=== PATIENT | male | born 1955 | race Caucasian/White ===

== ENCOUNTER 2022-10-25 10:56 | Inpatient (IN) | payer OTHER, MEDICAID ==
[2022-10-25] VITALS (10 sets, daily range): BP systolic 109–153; PULSE 64–119; RESP 20–22; TEMP 96.7–98.7; O2SAT 96–100
[~2022-10-25] VITALS: Ht 182.9 cm; Wt 72.6 kg
[2022-10-25] MEDS ORDERED: NACL 0.9% 1,000 ML IV ONE ×2 (11:45→12:45)
[2022-10-25 12:05] LABS: HEMATOCRIT 38.8 % (36-54); HEMOGLOBIN 13.5 g/dL (14.0-18.0); MEAN CORPUSCULAR HEMOGLOBIN 31 pg (27-31); MEAN CORPUSCULAR HGB CONC 35 % (32-36); MEAN CORPUSCULAR VOLUME 88 fL (79.0-98.0); PLATELET COUNT (AUTO) 386 K/uL (130-430); RED BLOOD CELL COUNT(AUTO) 4.42 MIL/uL (4.2-6.2); RED CELL DISTRIBUTION WIDTH 12.5 % (9.0-15.0)
[2022-10-25 12:18] LABS: ANION GAP 10 (5-15); CALCIUM 8.7 mg/dL (8.4-11.0); CARBON DIOXIDE 29 mmol/L (23-29); CHLORIDE 88 mmol/L (98-107); CREATININE 0.85 mg/dL (0.55-1.30); GFR AFRICAN AMERICAN 116 mL/min (>90); GLUCOSE 315 mg/dL (74-106); POTASSIUM 3.2 mmol/L (3.5-5.1); SODIUM SERUM 127 mmol/L (136-145); UREA NITROGEN, BLOOD 11 mg/dL (8-21)
[2022-10-25 12:22] LABS: INR 1.2 (0.80-1.20); PROTHROMBIN TIME 12.4 SECS (9.5-12.5)
[2022-10-25 12:23] LABS: GFR NON AFRICAN-AMERICAN 96 mL/min (>90)
[2022-10-25 12:25] LABS: ALANINE AMINOTRANSFERASE 14 U/L (12-78); ALBUMIN 2.2 g/dL (3.4-4.8); ASPARTATE AMINOTRANSFERASE 35 U/L (10-37); TOTAL BILIRUBIN 0.8 mg/dL (0.0-1.0); TOTAL PROTEIN, SERUM 8.3 g/dL (6.4-8.3)
[2022-10-25 12:27] LABS: ALCOHOL, BLOOD < 3 mg/dL (<10)
[2022-10-25 12:32] LABS: BILIRUBIN,URINE NEGATIVE (NEGATIVE); BLOOD, URINE 1+ (NEGATIVE); CLARITY/URINE Clear (CLEAR); COLOR,URINE YELLOW (YELLOW); GLUCOSE,URINE 3+ (NEGATIVE); KETONES,URINE NEGATIVE (NEGATIVE); NITRITE, URINE NEGATIVE (NEGATIVE); PROTEIN URINE 2+ (NEGATIVE)
[2022-10-25 12:41] LABS: LEUKOCYTE ESTERASE ,URINE NEGATIVE (NEGATIVE)
[2022-10-25 12:47] LABS: BACTERIA,URINE None Seen /HPF (None Seen); WBC,URINE 0-3 /HPF (0-3)
[2022-10-25 12:48] LABS: HYALINE CASTS, URINE 0-5 /LPF (None Seen); MUCUS,URINE 1+ /LPF (None Seen)
[2022-10-25 12:59] LABS: ATYPICAL LYMPHOCYTES % 2 % (0-0); BAND % (MANUAL) 12 % (0-6); BASOPHILS % (MANUAL) 0 % (0-2); EOSINOPHILS % (MANUAL) 0 % (0-7); LYMPHOCYTES % (MANUAL) 4 % (20-46); MONOCYTES % (MANUAL) 7 % (0-11)
[2022-10-25 13:00] LABS: PLATELET ESTIMATE ADEQUATE (ADEQUATE)
[2022-10-25] MEDS ORDERED: VANCOMYCIN HCL 1,000 MG in NS 250 ML IV ONE (13:00)
[2022-10-25] MEDS ORDERED: cefTRIAXone 1 GM in D5W 50 ML IV ONE (13:00)
[2022-10-25 13:18] LABS: ABG O2 SAT% ESTIMATE 99.7 % (94.0-100.0); BLOOD GAS BASE EXCESS -0.1 mmol/L (-3.0-3.0); BLOOD GAS PO2 323.4 mmHg (75.0-100.0)
[2022-10-25] MEDS ORDERED: FURO40TA5 PO (13:25)
[2022-10-25] MEDS ORDERED: METF-379 PO (13:25)
[2022-10-25] MEDS ORDERED: EMPA10TA PO (13:25)
[2022-10-25] MEDS ORDERED: SPIR25TA6 PO (13:25)
[2022-10-25] MEDS ORDERED: CARV6.2554 PO (13:25)
[2022-10-25 13:38] LABS: ALLEN'S TEST POSITIVE (P); BLOOD GAS PCO2 59.9 mmHg (32.0-45.0); BLOOD GAS PH 7.287 (7.350-7.450)
[2022-10-25] MEDS ORDERED: cefTRIAXone 1 GM VIAL ONE (14:13)
[2022-10-25] MEDS ORDERED: VANCOMYCIN HCL 1000 MG/VIAL IV ONE (14:23)
[2022-10-25] MEDS ORDERED: NOREPINEPHRINE BITARTRATE 4 MG in NS 246 ML IV PRN (14:45)
[2022-10-25] MEDS: D5/0.45 NS 1,000 ML IV SCH (14:49)
[2022-10-25] MEDS ORDERED: ROCURONIUM BROMIDE 10 MG/ML (ZEMURON) ONE (15:00)
[2022-10-25] MEDS ORDERED: ETOMIDATE 20 MG/ 10 ML VIAL (AMIDATE) ONE (15:00)
[2022-10-25] MEDS ORDERED: NOREPINEPHRINE 4 MG/4 ML VIAL IV ONE (19:26)
[2022-10-25] MEDS: PIPERACILLIN/TAZO 4.5GM/DEX-IS 100 ML IV SCH (22:36)
[2022-10-25] MEDS: PROPOFOL DRIP 100 ML IV PRN (22:37)
[2022-10-26] VITALS (34 sets, daily range): BP systolic 13–130; PULSE 91–117; RESP 16–24; TEMP 97–98.6; O2SAT 94–100
[2022-10-26] MEDS: D5/0.45 NS 1,000 ML IV SCH ×3 (00:08→20:37)
[2022-10-26] MEDS: PROPOFOL DRIP 100 ML IV PRN ×5 (01:50→22:53)
[2022-10-26] MEDS: PIPERACILLIN/TAZO 4.5GM/DEX-IS 100 ML IV SCH ×3 (05:13→22:42)
[2022-10-26 05:40] LABS: ERYTHROCYTE SEDIMENTATION RATE 84 MM/HR (0-15)
[2022-10-26 05:42] LABS: BASOPHILS # (AUTO) 0.1 K/uL (0.0-0.2); BASOPHILS % (AUTO) 0.2 % (0.0-2.0); HEMATOCRIT 36.7 % (36-54); HEMOGLOBIN 12.5 g/dL (14.0-18.0); LYMPHOCYTES # (AUTO) 2.2 K/uL (1.0-5.5); LYMPHOCYTES % (AUTO) 5.9 % (20.5-51.5); MEAN CORPUSCULAR HEMOGLOBIN 30 pg (27-31); MEAN CORPUSCULAR HGB CONC 34 % (32-36); MEAN CORPUSCULAR VOLUME 88 fL (79.0-98.0); MONOCYTES # (AUTO) 1.9 K/uL (0.0-1.0); MONOCYTES % (AUTO) 4.9 % (1.7-9.3); NEUTROPHILS # (AUTO) 33.9 K/uL (1.8-7.7); PLATELET COUNT (AUTO) 437 K/uL (130-430); RED BLOOD CELL COUNT(AUTO) 4.19 MIL/uL (4.2-6.2); RED CELL DISTRIBUTION WIDTH 12.8 % (9.0-15.0)
[2022-10-26 05:59] LABS: WHITE BLOOD COUNT (AUTO) 38.1 K/uL (4.8-10.8)
[2022-10-26 06:26] LABS: CALCIUM 8.6 mg/dL (8.4-11.0); CREATININE 0.6 mg/dL (0.55-1.30)
[2022-10-26 06:41] LABS: POTASSIUM 2.5 mmol/L (3.5-5.1)
[2022-10-26] MEDS ORDERED: KCL 40 mEq in 100 mL (PREMIX) 100 ML IV ONE ×2 (13:10→13:15)
[2022-10-26] MEDS: PANTOPRAZOLE SODIUM 40 MG/VIAL (PROTONIX) IVP SCH (20:34)
[2022-10-26] MEDS: VANCOMYCIN HCL 1,000 MG in NS 250 ML IV SCH (20:36)
[2022-10-26] MEDS ORDERED: MAGNESIUM SULFATE 50 ML IV ONE (23:00)
[2022-10-27] VITALS (36 sets, daily range): BP systolic 114–164; PULSE 79–116; RESP 18–34; TEMP 97.9–98.8; O2SAT 95–99
[2022-10-27] MEDS: VANCOMYCIN HCL 1,000 MG in NS 250 ML IV SCH ×3 (04:02→20:11)
[2022-10-27] MEDS: PROPOFOL DRIP 100 ML IV PRN ×3 (06:04→20:14)
[2022-10-27] MEDS: D5/0.45 NS 1,000 ML IV SCH ×2 (06:05→14:13)
[2022-10-27] MEDS: PIPERACILLIN/TAZO 4.5GM/DEX-IS 100 ML IV SCH (06:05)
[2022-10-27 06:23] LABS: BASOPHILS % (AUTO) 0.1 % (0.0-2.0); EOSINOPHILS % (AUTO) 0.1 % (0.0-4.0); LYMPHOCYTES # (AUTO) 2.1 K/uL (1.0-5.5); LYMPHOCYTES % (AUTO) 7.3 % (20.5-51.5); MEAN CORPUSCULAR HEMOGLOBIN 30 pg (27-31); MEAN CORPUSCULAR HGB CONC 34 % (32-36); MEAN CORPUSCULAR VOLUME 89 fL (79.0-98.0); MONOCYTES # (AUTO) 1.7 K/uL (0.0-1.0); MONOCYTES % (AUTO) 5.7 % (1.7-9.3); NEUTROPHILS # (AUTO) 25.5 K/uL (1.8-7.7); NEUTROPHILS % (AUTO) 86.8 % (40.0-70.0); PLATELET COUNT (AUTO) 362 K/uL (130-430); RED CELL DISTRIBUTION WIDTH 13.1 % (9.0-15.0); WHITE BLOOD COUNT (AUTO) 29.3 K/uL (4.8-10.8)
[2022-10-27 06:53] LABS: ALBUMIN 1.5 g/dL (3.4-4.8); CALCIUM 7.9 mg/dL (8.4-11.0); CREATININE 0.78 mg/dL (0.55-1.30); POTASSIUM 3.2 mmol/L (3.5-5.1); TOTAL BILIRUBIN 0.6 mg/dL (0.0-1.0); TOTAL PROTEIN, SERUM 6.7 g/dL (6.4-8.3)
[2022-10-27] MEDS: PANTOPRAZOLE SODIUM 40 MG/VIAL (PROTONIX) IVP SCH ×2 (08:16→21:33)
[2022-10-27] MEDS ORDERED: KCL 40 mEq in 100 mL (PREMIX) 100 ML IV ONE (10:15)
[2022-10-27] MEDS: MICAFUNGIN SODIUM 50 MG in NS 50 ML IV SCH (14:12)
[2022-10-27 19:15] LABS: INFLUENZA TYPE A negative (NEGATIVE); INFLUENZA TYPE B NEGATIVE (NEGATIVE)
[2022-10-27 19:20] LABS: COVID19 ANTIGEN SOFIA FIA POSITIVE (NEGATIVE)
[2022-10-27] MEDS: CEFEPIME 2 GM in D5W 100 ML IV SCH (21:33)
[2022-10-28] VITALS (37 sets, daily range): BP systolic 119–172; PULSE 74–92; RESP 24–34; TEMP 98.4–98.8; O2SAT 94–99
[2022-10-28] MEDS: PROPOFOL DRIP 100 ML IV PRN ×3 (00:10→17:39)
[2022-10-28] MEDS: D5/0.45 NS 1,000 ML IV SCH ×3 (01:25→18:39)
[2022-10-28] MEDS ORDERED: hydrALAZINE HCL 20 MG/ML VIAL IVP PRN (01:30)
[2022-10-28] MEDS: VANCOMYCIN HCL 1,000 MG in NS 250 ML IV SCH ×3 (04:03→19:39)
[2022-10-28 05:41] LABS: BASOPHILS % (AUTO) 0.1 % (0.0-2.0); EOSINOPHILS % (AUTO) 0.1 % (0.0-4.0); HEMATOCRIT 35.1 % (36-54); LYMPHOCYTES % (AUTO) 7.4 % (20.5-51.5); MEAN CORPUSCULAR HEMOGLOBIN 30 pg (27-31); MEAN CORPUSCULAR HGB CONC 34 % (32-36); MEAN CORPUSCULAR VOLUME 89 fL (79.0-98.0); MONOCYTES # (AUTO) 1.2 K/uL (0.0-1.0); MONOCYTES % (AUTO) 4.2 % (1.7-9.3); NEUTROPHILS # (AUTO) 24.3 K/uL (1.8-7.7); NEUTROPHILS % (AUTO) 88.2 % (40.0-70.0); PLATELET COUNT (AUTO) 356 K/uL (130-430); RED BLOOD CELL COUNT(AUTO) 3.93 MIL/uL (4.2-6.2); WHITE BLOOD COUNT (AUTO) 27.5 K/uL (4.8-10.8)
[2022-10-28 06:07] LABS: ALBUMIN 1.5 g/dL (3.4-4.8); BILIRUBIN,DIRECT 0.3 mg/dL (0.0-0.3); CALCIUM 8.2 mg/dL (8.4-11.0); CREATININE 0.67 mg/dL (0.55-1.30); POTASSIUM 3.7 mmol/L (3.5-5.1); TOTAL BILIRUBIN 0.5 mg/dL (0.0-1.0); TOTAL PROTEIN, SERUM 7.3 g/dL (6.4-8.3)
[2022-10-28 06:25] LABS: ERYTHROCYTE SEDIMENTATION RATE 62 MM/HR (0-15)
[2022-10-28] MEDS: hydrALAZINE HCL 20 MG/ML VIAL IVP PRN ×2 (06:36→21:29)
[2022-10-28 08:02] LABS: ABG O2 SAT% ESTIMATE 96.3 % (94.0-100.0); BLOOD GAS HCO3 25.3 mmol/L (21.0-27.0); BLOOD GAS PCO2 32.2 mmHg (32.0-45.0); BLOOD GAS PO2 74.6 mmHg (75.0-100.0)
[2022-10-28 08:14] LABS: ALLEN'S TEST POSITIVE (P); BLOOD GAS PH 7.513 (7.350-7.450)
[2022-10-28] MEDS: CEFEPIME 2 GM in D5W 100 ML IV SCH ×2 (08:20→21:28)
[2022-10-28] MEDS: PANTOPRAZOLE SODIUM 40 MG/VIAL (PROTONIX) IVP SCH ×2 (08:20→21:28)
[2022-10-28] MEDS: BALSAM PERU/CASTOR OIL 56.7 GM OINT...G. TP SCH (08:21)
[2022-10-28] MEDS: MICAFUNGIN SODIUM 50 MG in NS 50 ML IV SCH (14:21)
[2022-10-29] VITALS (37 sets, daily range): BP systolic 121–170; PULSE 74–94; RESP 7–44; TEMP 97.8–98.7; O2SAT 94–98
[2022-10-29] MEDS: PROPOFOL DRIP 100 ML IV PRN ×4 (01:01→23:19)
[2022-10-29] MEDS: VANCOMYCIN HCL 1,000 MG in NS 250 ML IV SCH ×3 (04:20→20:45)
[2022-10-29 05:45] LABS: ERYTHROCYTE SEDIMENTATION RATE 73 MM/HR (0-15)
[2022-10-29 05:57] LABS: BASOPHILS # (AUTO) 0.2 K/uL (0.0-0.2); BASOPHILS % (AUTO) 0.8 % (0.0-2.0); EOSINOPHILS # (AUTO) 0.1 K/uL (0.0-0.4); EOSINOPHILS % (AUTO) 0.3 % (0.0-4.0); HEMOGLOBIN 11.9 g/dL (14.0-18.0); LYMPHOCYTES % (AUTO) 8.4 % (20.5-51.5); MEAN CORPUSCULAR HEMOGLOBIN 30 pg (27-31); MEAN CORPUSCULAR HGB CONC 34 % (32-36); MEAN CORPUSCULAR VOLUME 89 fL (79.0-98.0); MONOCYTES # (AUTO) 1.1 K/uL (0.0-1.0); MONOCYTES % (AUTO) 4.5 % (1.7-9.3); NEUTROPHILS # (AUTO) 20.6 K/uL (1.8-7.7); PLATELET COUNT (AUTO) 340 K/uL (130-430); RED BLOOD CELL COUNT(AUTO) 3.92 MIL/uL (4.2-6.2); RED CELL DISTRIBUTION WIDTH 12.8 % (9.0-15.0); WHITE BLOOD COUNT (AUTO) 23.9 K/uL (4.8-10.8)
[2022-10-29 06:08] LABS: ALBUMIN 1.3 g/dL (3.4-4.8); CALCIUM 7.8 mg/dL (8.4-11.0); CREATININE 0.62 mg/dL (0.55-1.30); PHOSPHORUS 2.9 mg/dL (2.7-4.5); POTASSIUM 3.6 mmol/L (3.5-5.1); TOTAL BILIRUBIN 0.5 mg/dL (0.0-1.0); TOTAL PROTEIN, SERUM 6.9 g/dL (6.4-8.3)
[2022-10-29] MEDS: D5/0.45 NS 1,000 ML IV SCH (07:12)
[2022-10-29 07:50] LABS: ABG O2 SAT% ESTIMATE 96.5 % (94.0-100.0); BLOOD GAS BASE EXCESS 5.1 mmol/L (-3.0-3.0); BLOOD GAS HCO3 28.2 mmol/L (21.0-27.0); BLOOD GAS PCO2 36.7 mmHg (32.0-45.0); BLOOD GAS PO2 77.9 mmHg (75.0-100.0)
[2022-10-29 07:53] LABS: BLOOD GAS PH 7.504 (7.350-7.450)
[2022-10-29 07:54] LABS: ALLEN'S TEST POSITIVE (P)
[2022-10-29] MEDS: CEFEPIME 2 GM in D5W 100 ML IV SCH ×2 (08:37→20:48)
[2022-10-29] MEDS: PANTOPRAZOLE SODIUM 40 MG/VIAL (PROTONIX) IVP SCH ×2 (08:37→21:02)
[2022-10-29] MEDS: BALSAM PERU/CASTOR OIL 56.7 GM OINT...G. TP SCH (08:50)
[2022-10-29] MEDS ORDERED: CALCIUM GLUCONATE 2 GM in NS 100 ML IV ONE (11:00)
[2022-10-29] MEDS: MICAFUNGIN SODIUM 50 MG in NS 50 ML IV SCH (14:32)
[2022-10-29] MEDS: hydrALAZINE HCL 20 MG/ML VIAL IVP PRN (23:09)
[2022-10-30] VITALS (36 sets, daily range): BP systolic 110–150; PULSE 74–95; RESP 24–32; TEMP 98.2–101; O2SAT 95–98
[2022-10-30] MEDS: PROPOFOL DRIP 100 ML IV PRN ×3 (04:58→14:56)
[2022-10-30 05:45] LABS: BASOPHILS # (AUTO) 0.1 K/uL (0.0-0.2); BASOPHILS % (AUTO) 0.4 % (0.0-2.0); EOSINOPHILS # (AUTO) 0.2 K/uL (0.0-0.4); EOSINOPHILS % (AUTO) 1.1 % (0.0-4.0); HEMATOCRIT 33.9 % (36-54); HEMOGLOBIN 11.3 g/dL (14.0-18.0); LYMPHOCYTES # (AUTO) 1.7 K/uL (1.0-5.5); LYMPHOCYTES % (AUTO) 8.4 % (20.5-51.5); MEAN CORPUSCULAR HEMOGLOBIN 30 pg (27-31); MEAN CORPUSCULAR HGB CONC 34 % (32-36); MEAN CORPUSCULAR VOLUME 89 fL (79.0-98.0); MONOCYTES % (AUTO) 4.8 % (1.7-9.3); NEUTROPHILS # (AUTO) 17.5 K/uL (1.8-7.7); NEUTROPHILS % (AUTO) 85.3 % (40.0-70.0); PLATELET COUNT (AUTO) 341 K/uL (130-430); WHITE BLOOD COUNT (AUTO) 20.6 K/uL (4.8-10.8)
[2022-10-30 05:53] LABS: ERYTHROCYTE SEDIMENTATION RATE 68 MM/HR (0-15)
[2022-10-30] MEDS: VANCOMYCIN HCL 1,000 MG in NS 250 ML IV SCH ×3 (06:05→19:36)
[2022-10-30 07:12] LABS: CALCIUM 7.6 mg/dL (8.4-11.0); CREATININE 0.54 mg/dL (0.55-1.30); POTASSIUM 3.3 mmol/L (3.5-5.1)
[2022-10-30 08:28] LABS: ALBUMIN 1.4 g/dL (3.4-4.8); BILIRUBIN,DIRECT 0.2 mg/dL (0.0-0.3); TOTAL BILIRUBIN 0.4 mg/dL (0.0-1.0); TOTAL PROTEIN, SERUM 6.7 g/dL (6.4-8.3)
[2022-10-30] MEDS: BALSAM PERU/CASTOR OIL 56.7 GM OINT...G. TP SCH (09:05)
[2022-10-30] MEDS: PANTOPRAZOLE SODIUM 40 MG/VIAL (PROTONIX) IVP SCH ×2 (09:05→22:57)
[2022-10-30] MEDS: CEFEPIME 2 GM in D5W 100 ML IV SCH ×2 (09:05→22:56)
[2022-10-30 09:22] LABS: INFLUENZA A PCR Negative (Negative); INFLUENZA B PCR Negative (Negative); NOVEL CORONAVIRUS(COVID19) NAA Negative (Negative); RSV PCR Negative (Negative)
[2022-10-30] MEDS ORDERED: POTASSIUM CHLORIDE 20 MEQ/PKT PACKET NG ONE (11:45)
[2022-10-30] MEDS ORDERED: POTASSIUM CHLORIDE 20 MEQ TAB.PRT.SR ONE (12:36)
[2022-10-30] MEDS: MICAFUNGIN SODIUM 50 MG in NS 50 ML IV SCH (14:02)
[2022-10-30] MEDS ORDERED: ACETAMINOPHEN 650 MG/20.3 ML UDC ONE (22:43)
[2022-10-31] VITALS (26 sets, daily range): BP systolic 125–173; PULSE 80–103; RESP 20–34; TEMP 96–99.8; O2SAT 94–99
[2022-10-31] MEDS: PROPOFOL DRIP 100 ML IV PRN ×4 (00:59→22:12)
[2022-10-31] MEDS: hydrALAZINE HCL 20 MG/ML VIAL IVP PRN ×2 (01:42→13:42)
[2022-10-31] MEDS: VANCOMYCIN HCL 1,000 MG in NS 250 ML IV SCH ×2 (04:57→12:00)
[2022-10-31 06:07] LABS: ERYTHROCYTE SEDIMENTATION RATE 39 MM/HR (0-15)
[2022-10-31 06:09] LABS: BASOPHILS # (AUTO) 0.1 K/uL (0.0-0.2); BASOPHILS % (AUTO) 0.6 % (0.0-2.0); EOSINOPHILS # (AUTO) 0.3 K/uL (0.0-0.4); EOSINOPHILS % (AUTO) 1.4 % (0.0-4.0); HEMATOCRIT 31.7 % (36-54); HEMOGLOBIN 10.5 g/dL (14.0-18.0); LYMPHOCYTES # (AUTO) 1.8 K/uL (1.0-5.5); LYMPHOCYTES % (AUTO) 10.2 % (20.5-51.5); MEAN CORPUSCULAR HEMOGLOBIN 30 pg (27-31); MEAN CORPUSCULAR HGB CONC 33 % (32-36); MEAN CORPUSCULAR VOLUME 90 fL (79.0-98.0); MONOCYTES # (AUTO) 1.2 K/uL (0.0-1.0); NEUTROPHILS # (AUTO) 14.3 K/uL (1.8-7.7); NEUTROPHILS % (AUTO) 80.8 % (40.0-70.0); PLATELET COUNT (AUTO) 332 K/uL (130-430); RED BLOOD CELL COUNT(AUTO) 3.51 MIL/uL (4.2-6.2); RED CELL DISTRIBUTION WIDTH 13.1 % (9.0-15.0); WHITE BLOOD COUNT (AUTO) 17.8 K/uL (4.8-10.8)
[2022-10-31 06:29] LABS: ALBUMIN 1.3 g/dL (3.4-4.8); BILIRUBIN,DIRECT 0.1 mg/dL (0.0-0.3); CALCIUM 7.3 mg/dL (8.4-11.0); CREATININE 0.74 mg/dL (0.55-1.30); POTASSIUM 3.3 mmol/L (3.5-5.1); TOTAL BILIRUBIN 0.3 mg/dL (0.0-1.0); TOTAL PROTEIN, SERUM 6.5 g/dL (6.4-8.3)
[2022-10-31] MEDS: CEFEPIME 2 GM in D5W 100 ML IV SCH ×2 (09:33→21:35)
[2022-10-31] MEDS: ACETAMINOPHEN 650 MG/20.3 ML UDC GT PRN (09:34)
[2022-10-31] MEDS: PANTOPRAZOLE SODIUM 40 MG/VIAL (PROTONIX) IVP SCH ×2 (09:34→21:35)
[2022-10-31] MEDS: BALSAM PERU/CASTOR OIL 56.7 GM OINT...G. TP SCH (09:35)
[2022-10-31] MEDS ORDERED: KCL 40 mEq in 100 mL (PREMIX) 100 ML IV ONE (12:45)
[2022-10-31] MEDS: MICAFUNGIN SODIUM 50 MG in NS 50 ML IV SCH (15:05)
[2022-11-01] VITALS (36 sets, daily range): BP systolic 88–164; PULSE 82–112; RESP 24–39; TEMP 98.6–100.7; O2SAT 94–100
[2022-11-01] MEDS: hydrALAZINE HCL 20 MG/ML VIAL IVP PRN (01:37)
[2022-11-01] MEDS: PROPOFOL DRIP 100 ML IV PRN ×3 (03:42→20:03)
[2022-11-01 05:02] LABS: ERYTHROCYTE SEDIMENTATION RATE 72 MM/HR (0-15)
[2022-11-01 05:11] LABS: BASOPHILS # (AUTO) 0.1 K/uL (0.0-0.2); BASOPHILS % (AUTO) 0.6 % (0.0-2.0); EOSINOPHILS # (AUTO) 0.2 K/uL (0.0-0.4); EOSINOPHILS % (AUTO) 1.2 % (0.0-4.0); HEMATOCRIT 34.6 % (36-54); HEMOGLOBIN 11.5 g/dL (14.0-18.0); LYMPHOCYTES % (AUTO) 11.4 % (20.5-51.5); MEAN CORPUSCULAR HEMOGLOBIN 30 pg (27-31); MEAN CORPUSCULAR HGB CONC 33 % (32-36); MEAN CORPUSCULAR VOLUME 90 fL (79.0-98.0); NEUTROPHILS # (AUTO) 13.9 K/uL (1.8-7.7); NEUTROPHILS % (AUTO) 80.8 % (40.0-70.0); PLATELET COUNT (AUTO) 321 K/uL (130-430); RED BLOOD CELL COUNT(AUTO) 3.83 MIL/uL (4.2-6.2); RED CELL DISTRIBUTION WIDTH 13.2 % (9.0-15.0); WHITE BLOOD COUNT (AUTO) 17.2 K/uL (4.8-10.8)
[2022-11-01 05:40] LABS: ALBUMIN 1.4 g/dL (3.4-4.8); CALCIUM 7.6 mg/dL (8.4-11.0); CREATININE 0.66 mg/dL (0.55-1.30); PHOSPHORUS 1.8 mg/dL (2.7-4.5); POTASSIUM 4.2 mmol/L (3.5-5.1); TOTAL BILIRUBIN 0.3 mg/dL (0.0-1.0)
[2022-11-01] MEDS: BALSAM PERU/CASTOR OIL 56.7 GM OINT...G. TP SCH (09:00)
[2022-11-01] MEDS ORDERED: FUROSEMIDE 40 MG/4 ML VIAL IVP ONE (09:00)
[2022-11-01] MEDS: CEFEPIME 2 GM in D5W 100 ML IV SCH ×2 (09:59→20:48)
[2022-11-01] MEDS: PANTOPRAZOLE SODIUM 40 MG/VIAL (PROTONIX) IVP SCH ×2 (09:59→20:49)
[2022-11-01] MEDS ORDERED: CALCIUM GLUCONATE 2 GM in NS 100 ML IV ONE (11:00)
[2022-11-01] MEDS: ACETAMINOPHEN 650 MG/20.3 ML UDC GT PRN (11:35)
[2022-11-01] MEDS ORDERED: NA PHOS 15 MM in NS 250 ML IV ONE (12:00)
[2022-11-01] MEDS: INSULIN REGULAR, HUMAN 100 UNITS/ML, 3 ML VIAL (humuLIN R) SUBCUT PRN (12:55)
[2022-11-01] MEDS: MICAFUNGIN SODIUM 50 MG in NS 50 ML IV SCH (14:30)
[2022-11-01] MEDS: ENOXAPARIN SODIUM 40 MG/0.4 ML SYRINGE SUBCUT SCH (20:49)
[2022-11-02] VITALS (36 sets, daily range): BP systolic 15–159; PULSE 87–101; RESP 20–33; TEMP 99.1–101.1; O2SAT 94–99
[2022-11-02] MEDS: hydrALAZINE HCL 20 MG/ML VIAL IVP PRN (03:25)
[2022-11-02] MEDS: PROPOFOL DRIP 100 ML IV PRN (04:34)
[2022-11-02] MEDS: INSULIN REGULAR, HUMAN 100 UNITS/ML, 3 ML VIAL (humuLIN R) SUBCUT PRN ×4 (05:19→23:53)
[2022-11-02 05:42] LABS: ERYTHROCYTE SEDIMENTATION RATE 65 MM/HR (0-15)
[2022-11-02 05:56] LABS: BASOPHILS # (AUTO) 0.1 K/uL (0.0-0.2); BASOPHILS % (AUTO) 0.6 % (0.0-2.0); EOSINOPHILS % (AUTO) 0.3 % (0.0-4.0); HEMATOCRIT 36.6 % (36-54); HEMOGLOBIN 11.9 g/dL (14.0-18.0); LYMPHOCYTES # (AUTO) 2.1 K/uL (1.0-5.5); LYMPHOCYTES % (AUTO) 14.1 % (20.5-51.5); MEAN CORPUSCULAR HEMOGLOBIN 30 pg (27-31); MEAN CORPUSCULAR HGB CONC 32 % (32-36); MEAN CORPUSCULAR VOLUME 92 fL (79.0-98.0); MONOCYTES % (AUTO) 6.4 % (1.7-9.3); NEUTROPHILS % (AUTO) 78.6 % (40.0-70.0); PLATELET COUNT (AUTO) 292 K/uL (130-430); RED BLOOD CELL COUNT(AUTO) 3.97 MIL/uL (4.2-6.2); RED CELL DISTRIBUTION WIDTH 13.1 % (9.0-15.0); WHITE BLOOD COUNT (AUTO) 15.2 K/uL (4.8-10.8)
[2022-11-02 06:18] LABS: CALCIUM 7.7 mg/dL (8.4-11.0); CREATININE 0.73 mg/dL (0.55-1.30); POTASSIUM 3.6 mmol/L (3.5-5.1)
[2022-11-02] MEDS: PANTOPRAZOLE SODIUM 40 MG/VIAL (PROTONIX) IVP SCH ×2 (08:46→21:30)
[2022-11-02] MEDS: CEFEPIME 2 GM in D5W 100 ML IV SCH ×2 (08:46→21:34)
[2022-11-02] MEDS ORDERED: CALCIUM GLUCONATE 2 GM in NS 100 ML IV ONE (11:00)
[2022-11-02] MEDS: ACETAMINOPHEN 650 MG/20.3 ML UDC GT PRN (12:44)
[2022-11-02] MEDS: MICAFUNGIN SODIUM 50 MG in NS 50 ML IV SCH (13:09)
[2022-11-02] MEDS: VANCOMYCIN HCL 750 MG in NS 250 ML IV SCH ×2 (16:00→23:35)
[2022-11-02] MEDS: ENOXAPARIN SODIUM 40 MG/0.4 ML SYRINGE SUBCUT SCH (21:30)
[2022-11-03] VITALS (37 sets, daily range): BP systolic 93–159; PULSE 89–140; RESP 16–40; TEMP 97.4–101.5; O2SAT 94–99
[2022-11-03 05:10] LABS: ERYTHROCYTE SEDIMENTATION RATE 78 MM/HR (0-15)
[2022-11-03 05:19] LABS: BASOPHILS # (AUTO) 0.1 K/uL (0.0-0.2); BASOPHILS % (AUTO) 0.6 % (0.0-2.0); HEMOGLOBIN 12.6 g/dL (14.0-18.0); LYMPHOCYTES # (AUTO) 1.7 K/uL (1.0-5.5); LYMPHOCYTES % (AUTO) 11.8 % (20.5-51.5); MEAN CORPUSCULAR HEMOGLOBIN 30 pg (27-31); MEAN CORPUSCULAR HGB CONC 33 % (32-36); MEAN CORPUSCULAR VOLUME 92 fL (79.0-98.0); MONOCYTES # (AUTO) 0.8 K/uL (0.0-1.0); MONOCYTES % (AUTO) 5.8 % (1.7-9.3); NEUTROPHILS # (AUTO) 11.7 K/uL (1.8-7.7); NEUTROPHILS % (AUTO) 81.8 % (40.0-70.0); PLATELET COUNT (AUTO) 318 K/uL (130-430); RED BLOOD CELL COUNT(AUTO) 4.15 MIL/uL (4.2-6.2); RED CELL DISTRIBUTION WIDTH 13.1 % (9.0-15.0); WHITE BLOOD COUNT (AUTO) 14.3 K/uL (4.8-10.8)
[2022-11-03 05:39] LABS: ALBUMIN 1.7 g/dL (3.4-4.8); CALCIUM 8.1 mg/dL (8.4-11.0); CREATININE 0.86 mg/dL (0.55-1.30); PHOSPHORUS 2.3 mg/dL (2.7-4.5); POTASSIUM 4.2 mmol/L (3.5-5.1); TOTAL BILIRUBIN 0.6 mg/dL (0.0-1.0); TOTAL PROTEIN, SERUM 7.9 g/dL (6.4-8.3)
[2022-11-03] MEDS: VANCOMYCIN HCL 750 MG in NS 250 ML IV SCH ×3 (07:00→22:04)
[2022-11-03] MEDS: PANTOPRAZOLE SODIUM 40 MG/VIAL (PROTONIX) IVP SCH ×2 (09:25→21:58)
[2022-11-03] MEDS: ACETAMINOPHEN 650 MG/20.3 ML UDC GT PRN ×3 (09:26→21:59)
[2022-11-03] MEDS: INSULIN REGULAR, HUMAN 100 UNITS/ML, 3 ML VIAL (humuLIN R) SUBCUT PRN ×4 (09:28→23:52)
[2022-11-03] MEDS ORDERED: CALCIUM GLUCONATE 2 GM in NS 100 ML IV ONE (10:30)
[2022-11-03] MEDS ORDERED: K PHOS 15 MM in NS 250 ML IV ONE (11:00)
[2022-11-03] MEDS ORDERED: CARVEDILOL 6.25 MG TABLET (COREG) PO ONE (11:00)
[2022-11-03] MEDS: LORazepam 2 MG/ML VIAL IV PRN ×2 (11:15→15:49)
[2022-11-03] MEDS: MICAFUNGIN SODIUM 50 MG in NS 50 ML IV SCH (13:59)
[2022-11-03] MEDS ORDERED: QUEtiapine FUMARATE 25 MG TABLET PO ONE (15:15)
[2022-11-03] MEDS: ENOXAPARIN SODIUM 40 MG/0.4 ML SYRINGE SUBCUT SCH (21:58)
[2022-11-03] MEDS: CARVEDILOL 6.25 MG TABLET (COREG) PO SCH (21:59)
[2022-11-03] MEDS: QUEtiapine FUMARATE 25 MG TABLET PO SCH (21:59)
[2022-11-03] MEDS: INSULIN GLARGINE 100 UNITS/ML, 10 ML VIAL SUBCUT SCH (22:00)
[2022-11-04] VITALS (37 sets, daily range): BP systolic 100–153; PULSE 87–116; RESP 17–37; TEMP 98.1–99.1; O2SAT 95–100
[2022-11-04 05:25] LABS: ERYTHROCYTE SEDIMENTATION RATE 65 MM/HR (0-15)
[2022-11-04 05:42] LABS: BASOPHILS # (AUTO) 0.1 K/uL (0.0-0.2); BASOPHILS % (AUTO) 0.8 % (0.0-2.0); EOSINOPHILS % (AUTO) 0.2 % (0.0-4.0); HEMATOCRIT 34.5 % (36-54); HEMOGLOBIN 11.1 g/dL (14.0-18.0); LYMPHOCYTES % (AUTO) 14.5 % (20.5-51.5); MEAN CORPUSCULAR HEMOGLOBIN 30 pg (27-31); MEAN CORPUSCULAR HGB CONC 32 % (32-36); MEAN CORPUSCULAR VOLUME 93 fL (79.0-98.0); MONOCYTES # (AUTO) 0.9 K/uL (0.0-1.0); MONOCYTES % (AUTO) 6.2 % (1.7-9.3); NEUTROPHILS # (AUTO) 10.9 K/uL (1.8-7.7); NEUTROPHILS % (AUTO) 78.3 % (40.0-70.0); PLATELET COUNT (AUTO) 269 K/uL (130-430); RED BLOOD CELL COUNT(AUTO) 3.73 MIL/uL (4.2-6.2); RED CELL DISTRIBUTION WIDTH 13.4 % (9.0-15.0); WHITE BLOOD COUNT (AUTO) 13.9 K/uL (4.8-10.8)
[2022-11-04 06:02] LABS: CALCIUM 7.7 mg/dL (8.4-11.0); CREATININE 0.92 mg/dL (0.55-1.30); POTASSIUM 3.5 mmol/L (3.5-5.1)
[2022-11-04] MEDS: VANCOMYCIN HCL 750 MG in NS 250 ML IV SCH ×3 (06:11→22:57)
[2022-11-04] MEDS: LORazepam 2 MG/ML VIAL IV PRN (06:11)
[2022-11-04] MEDS: INSULIN REGULAR, HUMAN 100 UNITS/ML, 3 ML VIAL (humuLIN R) SUBCUT PRN ×3 (06:13→18:21)
[2022-11-04] MEDS: PANTOPRAZOLE SODIUM 40 MG/VIAL (PROTONIX) IVP SCH ×2 (09:00→22:06)
[2022-11-04] MEDS: QUEtiapine FUMARATE 25 MG TABLET PO SCH ×2 (09:01→22:06)
[2022-11-04] MEDS: CARVEDILOL 6.25 MG TABLET (COREG) PO SCH ×2 (09:01→22:06)
[2022-11-04] MEDS: D5W 1,000 ML IV SCH (11:20)
[2022-11-04] MEDS: MICAFUNGIN SODIUM 50 MG in NS 50 ML IV SCH (13:47)
[2022-11-04] MEDS: ENOXAPARIN SODIUM 40 MG/0.4 ML SYRINGE SUBCUT SCH (22:07)
[2022-11-04] MEDS: ACETAMINOPHEN 650 MG/20.3 ML UDC GT PRN (23:13)
[2022-11-04] MEDS: INSULIN GLARGINE 100 UNITS/ML, 10 ML VIAL SUBCUT SCH (23:37)
[2022-11-05] VITALS (36 sets, daily range): BP systolic 90–127; PULSE 90–119; RESP 20–37; TEMP 98.3–102; O2SAT 95–100
[2022-11-05] MEDS: D5W 1,000 ML IV SCH ×2 (00:35→11:30)
[2022-11-05] MEDS: INSULIN REGULAR, HUMAN 100 UNITS/ML, 3 ML VIAL (humuLIN R) SUBCUT PRN ×4 (05:23→23:57)
[2022-11-05 06:53] LABS: BASOPHILS # (AUTO) 0.1 K/uL (0.0-0.2); BASOPHILS % (AUTO) 0.9 % (0.0-2.0); EOSINOPHILS % (AUTO) 0.1 % (0.0-4.0); HEMATOCRIT 31.7 % (36-54); HEMOGLOBIN 10.3 g/dL (14.0-18.0); MEAN CORPUSCULAR HEMOGLOBIN 30 pg (27-31); MEAN CORPUSCULAR HGB CONC 33 % (32-36); MEAN CORPUSCULAR VOLUME 92 fL (79.0-98.0); MONOCYTES # (AUTO) 0.7 K/uL (0.0-1.0); MONOCYTES % (AUTO) 4.6 % (1.7-9.3); NEUTROPHILS # (AUTO) 11.7 K/uL (1.8-7.7); NEUTROPHILS % (AUTO) 80.4 % (40.0-70.0); PLATELET COUNT (AUTO) 213 K/uL (130-430); RED BLOOD CELL COUNT(AUTO) 3.45 MIL/uL (4.2-6.2); RED CELL DISTRIBUTION WIDTH 13.5 % (9.0-15.0); WHITE BLOOD COUNT (AUTO) 14.6 K/uL (4.8-10.8)
[2022-11-05 07:13] LABS: ALBUMIN 1.4 g/dL (3.4-4.8); CALCIUM 7.5 mg/dL (8.4-11.0); CREATININE 0.89 mg/dL (0.55-1.30); POTASSIUM 3.7 mmol/L (3.5-5.1); TOTAL BILIRUBIN 0.6 mg/dL (0.0-1.0)
[2022-11-05 07:46] LABS: ERYTHROCYTE SEDIMENTATION RATE 58 MM/HR (0-15)
[2022-11-05] MEDS: VANCOMYCIN HCL 750 MG in NS 250 ML IV SCH ×3 (07:54→23:55)
[2022-11-05] MEDS: PANTOPRAZOLE SODIUM 40 MG/VIAL (PROTONIX) IVP SCH ×2 (10:38→21:25)
[2022-11-05] MEDS: QUEtiapine FUMARATE 25 MG TABLET PO SCH ×2 (10:41→21:27)
[2022-11-05] MEDS: CARVEDILOL 6.25 MG TABLET (COREG) PO SCH ×2 (10:41→21:27)
[2022-11-05] MEDS: MICAFUNGIN SODIUM 50 MG in NS 50 ML IV SCH (11:28)
[2022-11-05] MEDS: ACETAMINOPHEN 650 MG/20.3 ML UDC GT PRN (11:59)
[2022-11-05] MEDS: INSULIN GLARGINE 100 UNITS/ML, 10 ML VIAL SUBCUT SCH ×2 (21:00→21:30)
[2022-11-05] MEDS: MUPIROCIN 2% TOPICAL OINTMENT 22 GM TP SCH (21:00)
[2022-11-05] MEDS: ENOXAPARIN SODIUM 40 MG/0.4 ML SYRINGE SUBCUT SCH (21:27)
[2022-11-06] VITALS (37 sets, daily range): BP systolic 91–136; PULSE 88–124; RESP 25–38; TEMP 97.2–100.4; O2SAT 90–98
[2022-11-06] MEDS: D5W 1,000 ML IV SCH ×2 (00:28→17:11)
[2022-11-06 05:47] LABS: BASOPHILS # (AUTO) 0.1 K/uL (0.0-0.2); BASOPHILS % (AUTO) 0.8 % (0.0-2.0); EOSINOPHILS # (AUTO) 0.1 K/uL (0.0-0.4); EOSINOPHILS % (AUTO) 0.4 % (0.0-4.0); HEMATOCRIT 35.1 % (36-54); HEMOGLOBIN 11.2 g/dL (14.0-18.0); LYMPHOCYTES # (AUTO) 2.6 K/uL (1.0-5.5); LYMPHOCYTES % (AUTO) 16.1 % (20.5-51.5); MEAN CORPUSCULAR HEMOGLOBIN 30 pg (27-31); MEAN CORPUSCULAR HGB CONC 32 % (32-36); MEAN CORPUSCULAR VOLUME 93 fL (79.0-98.0); MONOCYTES # (AUTO) 0.5 K/uL (0.0-1.0); MONOCYTES % (AUTO) 3.3 % (1.7-9.3); NEUTROPHILS # (AUTO) 12.6 K/uL (1.8-7.7); NEUTROPHILS % (AUTO) 79.4 % (40.0-70.0); PLATELET COUNT (AUTO) 178 K/uL (130-430); RED BLOOD CELL COUNT(AUTO) 3.79 MIL/uL (4.2-6.2); RED CELL DISTRIBUTION WIDTH 13.7 % (9.0-15.0); WHITE BLOOD COUNT (AUTO) 15.9 K/uL (4.8-10.8)
[2022-11-06] MEDS: INSULIN REGULAR, HUMAN 100 UNITS/ML, 3 ML VIAL (humuLIN R) SUBCUT PRN ×3 (05:56→18:02)
[2022-11-06 06:03] LABS: CALCIUM 7.9 mg/dL (8.4-11.0); CREATININE 0.85 mg/dL (0.55-1.30); POTASSIUM 3.9 mmol/L (3.5-5.1)
[2022-11-06 06:10] LABS: ERYTHROCYTE SEDIMENTATION RATE 55 MM/HR (0-15)
[2022-11-06] MEDS: MUPIROCIN 2% TOPICAL OINTMENT 22 GM TP SCH ×2 (09:28→20:51)
[2022-11-06] MEDS: VANCOMYCIN HCL 750 MG in NS 250 ML IV SCH ×2 (09:28→17:10)
[2022-11-06] MEDS: BICALUTAMIDE 50 MG TABLET PO SCH (09:29)
[2022-11-06] MEDS: QUEtiapine FUMARATE 25 MG TABLET PO SCH ×2 (09:29→20:50)
[2022-11-06] MEDS: CARVEDILOL 6.25 MG TABLET (COREG) PO SCH ×2 (09:29→20:50)
[2022-11-06] MEDS: PANTOPRAZOLE SODIUM 40 MG/VIAL (PROTONIX) IVP SCH ×2 (09:30→20:49)
[2022-11-06] MEDS: MICAFUNGIN SODIUM 50 MG in NS 50 ML IV SCH (14:18)
[2022-11-06] MEDS: ACETAMINOPHEN 650 MG/20.3 ML UDC GT PRN (14:30)
[2022-11-06] MEDS: ENOXAPARIN SODIUM 40 MG/0.4 ML SYRINGE SUBCUT SCH (20:51)
[2022-11-06] MEDS: INSULIN GLARGINE 100 UNITS/ML, 10 ML VIAL SUBCUT SCH ×2 (20:52→20:55)
[2022-11-07] VITALS (34 sets, daily range): BP systolic 88–127; PULSE 77–105; RESP 24–36; TEMP 98–99.8; O2SAT 92–97
[2022-11-07] MEDS: INSULIN REGULAR, HUMAN 100 UNITS/ML, 3 ML VIAL (humuLIN R) SUBCUT PRN ×4 (00:12→18:36)
[2022-11-07] MEDS: VANCOMYCIN HCL 750 MG in NS 250 ML IV SCH ×4 (00:12→22:21)
[2022-11-07] MEDS: D5W 1,000 ML IV SCH ×3 (01:37→22:20)
[2022-11-07] MEDS ORDERED: NOREPINEPHRINE 4 MG/4 ML VIAL IV ONE (04:43)
[2022-11-07 06:38] LABS: BASOPHILS # (AUTO) 0.1 K/uL (0.0-0.2); BASOPHILS % (AUTO) 1.2 % (0.0-2.0); EOSINOPHILS # (AUTO) 0.1 K/uL (0.0-0.4); EOSINOPHILS % (AUTO) 0.8 % (0.0-4.0); HEMATOCRIT 33.2 % (36-54); HEMOGLOBIN 10.7 g/dL (14.0-18.0); LYMPHOCYTES # (AUTO) 1.4 K/uL (1.0-5.5); LYMPHOCYTES % (AUTO) 11.1 % (20.5-51.5); MEAN CORPUSCULAR HEMOGLOBIN 30 pg (27-31); MEAN CORPUSCULAR HGB CONC 32 % (32-36); MEAN CORPUSCULAR VOLUME 93 fL (79.0-98.0); MONOCYTES # (AUTO) 0.3 K/uL (0.0-1.0); MONOCYTES % (AUTO) 2.6 % (1.7-9.3); NEUTROPHILS # (AUTO) 10.3 K/uL (1.8-7.7); NEUTROPHILS % (AUTO) 84.3 % (40.0-70.0); PLATELET COUNT (AUTO) 138 K/uL (130-430); RED BLOOD CELL COUNT(AUTO) 3.59 MIL/uL (4.2-6.2); RED CELL DISTRIBUTION WIDTH 13.5 % (9.0-15.0); WHITE BLOOD COUNT (AUTO) 12.3 K/uL (4.8-10.8)
[2022-11-07 06:49] LABS: ERYTHROCYTE SEDIMENTATION RATE 52 MM/HR (0-15)
[2022-11-07 06:54] LABS: ALBUMIN 1.4 g/dL (3.4-4.8); CALCIUM 7.6 mg/dL (8.4-11.0); CREATININE 0.82 mg/dL (0.55-1.30); POTASSIUM 3.5 mmol/L (3.5-5.1); TOTAL BILIRUBIN 0.6 mg/dL (0.0-1.0); TOTAL PROTEIN, SERUM 6.2 g/dL (6.4-8.3)
[2022-11-07] MEDS: CARVEDILOL 6.25 MG TABLET (COREG) PO SCH ×2 (09:15→21:50)
[2022-11-07] MEDS: QUEtiapine FUMARATE 25 MG TABLET PO SCH ×2 (09:16→21:50)
[2022-11-07] MEDS: BICALUTAMIDE 50 MG TABLET PO SCH (09:16)
[2022-11-07] MEDS: PANTOPRAZOLE SODIUM 40 MG/VIAL (PROTONIX) IVP SCH ×2 (09:16→21:48)
[2022-11-07] MEDS: MUPIROCIN 2% TOPICAL OINTMENT 22 GM TP SCH ×2 (09:16→21:52)
[2022-11-07] MEDS: PIPERACILLIN/TAZO 3.375/DEX-IS 50 ML IV SCH ×2 (13:58→18:39)
[2022-11-07] MEDS: MICAFUNGIN SODIUM 50 MG in NS 50 ML IV SCH (15:54)
[2022-11-07] MEDS: INSULIN GLARGINE 100 UNITS/ML, 10 ML VIAL SUBCUT SCH ×2 (21:00→21:52)
[2022-11-07] MEDS: ENOXAPARIN SODIUM 40 MG/0.4 ML SYRINGE SUBCUT SCH (21:52)
[2022-11-08] VITALS (36 sets, daily range): BP systolic 88–113; PULSE 86–102; RESP 26–37; TEMP 98–98.5; O2SAT 95–100
[2022-11-08] MEDS: PIPERACILLIN/TAZO 3.375/DEX-IS 50 ML IV SCH ×5 (01:16→23:48)
[2022-11-08] MEDS: INSULIN REGULAR, HUMAN 100 UNITS/ML, 3 ML VIAL (humuLIN R) SUBCUT PRN ×5 (01:18→23:58)
[2022-11-08 05:32] LABS: ERYTHROCYTE SEDIMENTATION RATE 40 MM/HR (0-15)
[2022-11-08 05:41] LABS: BASOPHILS # (AUTO) 0.2 K/uL (0.0-0.2); BASOPHILS % (AUTO) 1.3 % (0.0-2.0); EOSINOPHILS # (AUTO) 0.2 K/uL (0.0-0.4); EOSINOPHILS % (AUTO) 1.2 % (0.0-4.0); HEMATOCRIT 32.1 % (36-54); HEMOGLOBIN 10.5 g/dL (14.0-18.0); LYMPHOCYTES % (AUTO) 7.1 % (20.5-51.5); MEAN CORPUSCULAR HEMOGLOBIN 30 pg (27-31); MEAN CORPUSCULAR HGB CONC 33 % (32-36); MEAN CORPUSCULAR VOLUME 92 fL (79.0-98.0); MONOCYTES # (AUTO) 0.4 K/uL (0.0-1.0); MONOCYTES % (AUTO) 2.6 % (1.7-9.3); NEUTROPHILS # (AUTO) 12.8 K/uL (1.8-7.7); NEUTROPHILS % (AUTO) 87.8 % (40.0-70.0); PLATELET COUNT (AUTO) 139 K/uL (130-430); RED BLOOD CELL COUNT(AUTO) 3.48 MIL/uL (4.2-6.2); RED CELL DISTRIBUTION WIDTH 13.5 % (9.0-15.0); WHITE BLOOD COUNT (AUTO) 14.6 K/uL (4.8-10.8)
[2022-11-08 06:22] LABS: ALBUMIN 1.4 g/dL (3.4-4.8); CALCIUM 7.7 mg/dL (8.4-11.0); CREATININE 0.83 mg/dL (0.55-1.30); PHOSPHORUS 2.7 mg/dL (2.7-4.5); TOTAL BILIRUBIN 0.6 mg/dL (0.0-1.0)
[2022-11-08] MEDS: VANCOMYCIN HCL 750 MG in NS 250 ML IV SCH (06:29)
[2022-11-08 07:50] LABS: POTASSIUM 2.8 mmol/L (3.5-5.1)
[2022-11-08] MEDS: D5W 1,000 ML IV SCH ×2 (08:35→18:11)
[2022-11-08] MEDS: PANTOPRAZOLE SODIUM 40 MG/VIAL (PROTONIX) IVP SCH ×2 (08:35→20:51)
[2022-11-08] MEDS: BICALUTAMIDE 50 MG TABLET PO SCH (08:36)
[2022-11-08] MEDS: QUEtiapine FUMARATE 25 MG TABLET PO SCH ×2 (08:36→20:51)
[2022-11-08] MEDS: CARVEDILOL 6.25 MG TABLET (COREG) PO SCH ×2 (08:37→20:50)
[2022-11-08] MEDS: MUPIROCIN 2% TOPICAL OINTMENT 22 GM TP SCH ×2 (08:40→21:03)
[2022-11-08] MEDS ORDERED: KCL 40 mEq in 100 mL (PREMIX) 100 ML IV ONE (10:00)
[2022-11-08] MEDS ORDERED: CALCIUM GLUCONATE 2 GM in NS 100 ML IV ONE (11:00)
[2022-11-08] MEDS: MICAFUNGIN SODIUM 50 MG in NS 50 ML IV SCH (14:32)
[2022-11-08] MEDS: VANCOMYCIN HCL 1,000 MG in NS 250 ML IV SCH (19:43)
[2022-11-08] MEDS: INSULIN GLARGINE 100 UNITS/ML, 10 ML VIAL SUBCUT SCH ×2 (20:44→20:55)
[2022-11-08] MEDS: ENOXAPARIN SODIUM 40 MG/0.4 ML SYRINGE SUBCUT SCH (20:51)
[2022-11-09] VITALS (31 sets, daily range): BP systolic 92–125; PULSE 78–105; RESP 22–35; TEMP 97.8–98.3; O2SAT 94–100
[2022-11-09] MEDS: D5W 1,000 ML IV SCH ×2 (05:52→13:51)
[2022-11-09] MEDS: PIPERACILLIN/TAZO 3.375/DEX-IS 50 ML IV SCH ×3 (05:53→18:19)
[2022-11-09] MEDS: INSULIN REGULAR, HUMAN 100 UNITS/ML, 3 ML VIAL (humuLIN R) SUBCUT PRN ×3 (05:54→18:31)
[2022-11-09 05:56] LABS: BASOPHILS % (AUTO) 0.3 % (0.0-2.0); EOSINOPHILS # (AUTO) 0.2 K/uL (0.0-0.4); EOSINOPHILS % (AUTO) 1.2 % (0.0-4.0); HEMATOCRIT 31.8 % (36-54); HEMOGLOBIN 10.4 g/dL (14.0-18.0); LYMPHOCYTES # (AUTO) 1.1 K/uL (1.0-5.5); LYMPHOCYTES % (AUTO) 7.9 % (20.5-51.5); MEAN CORPUSCULAR HEMOGLOBIN 30 pg (27-31); MEAN CORPUSCULAR HGB CONC 33 % (32-36); MEAN CORPUSCULAR VOLUME 91 fL (79.0-98.0); MONOCYTES # (AUTO) 0.5 K/uL (0.0-1.0); MONOCYTES % (AUTO) 3.4 % (1.7-9.3); NEUTROPHILS # (AUTO) 12.6 K/uL (1.8-7.7); NEUTROPHILS % (AUTO) 87.2 % (40.0-70.0); PLATELET COUNT (AUTO) 162 K/uL (130-430); RED BLOOD CELL COUNT(AUTO) 3.48 MIL/uL (4.2-6.2); RED CELL DISTRIBUTION WIDTH 13.6 % (9.0-15.0); RETICULOCYTE COUNT 1.6 % (0.5-1.5); WHITE BLOOD COUNT (AUTO) 14.5 K/uL (4.8-10.8)
[2022-11-09 05:58] LABS: ERYTHROCYTE SEDIMENTATION RATE 64 MM/HR (0-15)
[2022-11-09 06:19] LABS: CALCIUM 7.8 mg/dL (8.4-11.0); CREATININE 0.71 mg/dL (0.55-1.30)
[2022-11-09 06:29] LABS: TOTAL IRON BIND. CAPACITY 83 ug/dL (250-450)
[2022-11-09 06:36] LABS: POTASSIUM 2.1 mmol/L (3.5-5.1)
[2022-11-09] MEDS ORDERED: KCL 20 mEq in 100 mL (PREMIX) 100 ML IV ONE (07:30)
[2022-11-09] MEDS: PANTOPRAZOLE SODIUM 40 MG/VIAL (PROTONIX) IVP SCH ×2 (08:02→20:33)
[2022-11-09] MEDS: VANCOMYCIN HCL 1,000 MG in NS 250 ML IV SCH ×2 (08:02→20:15)
[2022-11-09] MEDS: QUEtiapine FUMARATE 25 MG TABLET PO SCH ×2 (08:03→20:33)
[2022-11-09] MEDS: BICALUTAMIDE 50 MG TABLET PO SCH (08:03)
[2022-11-09] MEDS: CARVEDILOL 6.25 MG TABLET (COREG) PO SCH ×2 (08:04→20:33)
[2022-11-09] MEDS: MUPIROCIN 2% TOPICAL OINTMENT 22 GM TP SCH ×2 (08:05→20:49)
[2022-11-09] MEDS ORDERED: KCL 40 mEq in 100 mL (PREMIX) 100 ML IV ONE ×2 (09:30→17:45)
[2022-11-09] MEDS: MICAFUNGIN SODIUM 50 MG in NS 50 ML IV SCH (13:51)
[2022-11-09 17:01] LABS: ALBUMIN 1.5 g/dL (3.4-4.8); CALCIUM 7.9 mg/dL (8.4-11.0); CREATININE 0.82 mg/dL (0.55-1.30); TOTAL BILIRUBIN 0.3 mg/dL (0.0-1.0); TOTAL PROTEIN, SERUM 5.9 g/dL (6.4-8.3)
[2022-11-09 17:07] LABS: POTASSIUM 2.7 mmol/L (3.5-5.1)
[2022-11-09] MEDS ORDERED: POTASSIUM CHLORIDE 20 MEQ/PKT PACKET PO ONE (17:45)
[2022-11-09] MEDS: ENOXAPARIN SODIUM 40 MG/0.4 ML SYRINGE SUBCUT SCH (20:33)
[2022-11-09] MEDS: INSULIN GLARGINE 100 UNITS/ML, 10 ML VIAL SUBCUT SCH (20:34)
[2022-11-10] VITALS (34 sets, daily range): BP systolic 91–135; PULSE 76–104; RESP 22–35; TEMP 97.6–98.6; O2SAT 96–99
[2022-11-10] MEDS: PIPERACILLIN/TAZO 3.375/DEX-IS 50 ML IV SCH ×5 (00:17→23:50)
[2022-11-10] MEDS: D5W 1,000 ML IV SCH ×3 (00:34→22:05)
[2022-11-10] MEDS: INSULIN REGULAR, HUMAN 100 UNITS/ML, 3 ML VIAL (humuLIN R) SUBCUT PRN ×5 (00:38→23:52)
[2022-11-10 06:02] LABS: ERYTHROCYTE SEDIMENTATION RATE 54 MM/HR (0-15)
[2022-11-10 06:19] LABS: BASOPHILS # (AUTO) 0.1 K/uL (0.0-0.2); BASOPHILS % (AUTO) 0.5 % (0.0-2.0); EOSINOPHILS # (AUTO) 0.2 K/uL (0.0-0.4); EOSINOPHILS % (AUTO) 1.1 % (0.0-4.0); HEMATOCRIT 30.9 % (36-54); HEMOGLOBIN 10.1 g/dL (14.0-18.0); LYMPHOCYTES # (AUTO) 1.9 K/uL (1.0-5.5); LYMPHOCYTES % (AUTO) 12.7 % (20.5-51.5); MEAN CORPUSCULAR HEMOGLOBIN 30 pg (27-31); MEAN CORPUSCULAR HGB CONC 33 % (32-36); MEAN CORPUSCULAR VOLUME 91 fL (79.0-98.0); MONOCYTES # (AUTO) 0.7 K/uL (0.0-1.0); MONOCYTES % (AUTO) 4.5 % (1.7-9.3); NEUTROPHILS # (AUTO) 12.1 K/uL (1.8-7.7); NEUTROPHILS % (AUTO) 81.2 % (40.0-70.0); PLATELET COUNT (AUTO) 201 K/uL (130-430); RED BLOOD CELL COUNT(AUTO) 3.38 MIL/uL (4.2-6.2); RED CELL DISTRIBUTION WIDTH 13.6 % (9.0-15.0); WHITE BLOOD COUNT (AUTO) 14.9 K/uL (4.8-10.8)
[2022-11-10 06:42] LABS: ALBUMIN 1.5 g/dL (3.4-4.8); CALCIUM 7.8 mg/dL (8.4-11.0); CREATININE 0.76 mg/dL (0.55-1.30); PHOSPHORUS 2.4 mg/dL (2.7-4.5); POTASSIUM 3.3 mmol/L (3.5-5.1); TOTAL BILIRUBIN 0.4 mg/dL (0.0-1.0); TOTAL PROTEIN, SERUM 5.9 g/dL (6.4-8.3)
[2022-11-10] MEDS: MUPIROCIN 2% TOPICAL OINTMENT 22 GM TP SCH ×2 (08:04→22:09)
[2022-11-10] MEDS: PANTOPRAZOLE SODIUM 40 MG/VIAL (PROTONIX) IVP SCH ×2 (08:05→22:08)
[2022-11-10] MEDS: CARVEDILOL 6.25 MG TABLET (COREG) PO SCH ×2 (08:05→22:08)
[2022-11-10] MEDS: QUEtiapine FUMARATE 25 MG TABLET PO SCH ×2 (08:05→22:09)
[2022-11-10 08:06] LABS: FOLATE (FOLIC ACID) 12.6 ng/mL (>3.0)
[2022-11-10] MEDS: BICALUTAMIDE 50 MG TABLET PO SCH (08:06)
[2022-11-10] MEDS: VANCOMYCIN HCL 1,000 MG in NS 250 ML IV SCH ×2 (09:06→21:54)
[2022-11-10] MEDS ORDERED: CALCIUM GLUCONATE 2 GM in NS 100 ML IV ONE (12:00)
[2022-11-10] MEDS ORDERED: K PHOS 15 MM in NS 250 ML IV ONE (13:00)
[2022-11-10] MEDS: MICAFUNGIN SODIUM 50 MG in NS 50 ML IV SCH (14:38)
[2022-11-10] MEDS: ENOXAPARIN SODIUM 40 MG/0.4 ML SYRINGE SUBCUT SCH (22:09)
[2022-11-10] MEDS: INSULIN GLARGINE 100 UNITS/ML, 10 ML VIAL SUBCUT SCH (22:13)
[2022-11-11] VITALS (36 sets, daily range): BP systolic 105–149; PULSE 65–79; RESP 16–28; TEMP 97–99.1; O2SAT 95–100
[2022-11-11 05:30] LABS: ERYTHROCYTE SEDIMENTATION RATE 52 MM/HR (0-15)
[2022-11-11] MEDS: INSULIN REGULAR, HUMAN 100 UNITS/ML, 3 ML VIAL (humuLIN R) SUBCUT PRN ×2 (05:30→12:24)
[2022-11-11] MEDS: PIPERACILLIN/TAZO 3.375/DEX-IS 50 ML IV SCH ×3 (05:33→17:58)
[2022-11-11 05:44] LABS: BASOPHILS # (AUTO) 0.1 K/uL (0.0-0.2); BASOPHILS % (AUTO) 1.1 % (0.0-2.0); EOSINOPHILS # (AUTO) 0.2 K/uL (0.0-0.4); EOSINOPHILS % (AUTO) 1.7 % (0.0-4.0); HEMATOCRIT 28.5 % (36-54); HEMOGLOBIN 9.4 g/dL (14.0-18.0); LYMPHOCYTES # (AUTO) 1.7 K/uL (1.0-5.5); MEAN CORPUSCULAR HEMOGLOBIN 30 pg (27-31); MEAN CORPUSCULAR HGB CONC 33 % (32-36); MEAN CORPUSCULAR VOLUME 92 fL (79.0-98.0); MONOCYTES # (AUTO) 0.6 K/uL (0.0-1.0); MONOCYTES % (AUTO) 4.6 % (1.7-9.3); NEUTROPHILS # (AUTO) 9.4 K/uL (1.8-7.7); NEUTROPHILS % (AUTO) 78.6 % (40.0-70.0); PLATELET COUNT (AUTO) 210 K/uL (130-430); RED BLOOD CELL COUNT(AUTO) 3.11 MIL/uL (4.2-6.2); RED CELL DISTRIBUTION WIDTH 13.8 % (9.0-15.0)
[2022-11-11 06:04] LABS: CALCIUM 7.7 mg/dL (8.4-11.0); CREATININE 0.6 mg/dL (0.55-1.30); POTASSIUM 3.1 mmol/L (3.5-5.1); VANCOMYCIN,TROUGH 16.3 ug/mL (10.0-20.0)
[2022-11-11] MEDS: D5W 1,000 ML IV SCH ×2 (06:30→16:30)
[2022-11-11] MEDS: VANCOMYCIN HCL 1,000 MG in NS 250 ML IV SCH ×2 (08:12→21:06)
[2022-11-11] MEDS: PANTOPRAZOLE SODIUM 40 MG/VIAL (PROTONIX) IVP SCH ×2 (08:32→21:06)
[2022-11-11] MEDS: BICALUTAMIDE 50 MG TABLET PO SCH (08:32)
[2022-11-11] MEDS: QUEtiapine FUMARATE 25 MG TABLET PO SCH ×2 (08:33→21:05)
[2022-11-11] MEDS: CARVEDILOL 6.25 MG TABLET (COREG) PO SCH ×2 (08:33→21:05)
[2022-11-11] MEDS: MUPIROCIN 2% TOPICAL OINTMENT 22 GM TP SCH ×2 (08:35→21:00)
[2022-11-11] MEDS ORDERED: POTASSIUM CHLORIDE 40 MEQ in D5W 250 ML IV ONE (09:45)
[2022-11-11] MEDS ORDERED: CALCIUM GLUCONATE 2 GM in NS 100 ML IV ONE (11:00)
[2022-11-11] MEDS ORDERED: SEVOFLURANE 15 MIN GAS INH ONE (15:00)
[2022-11-11] MEDS ORDERED: ROCURONIUM BROMIDE 10 MG/ML (ZEMURON) ONE (15:00)
[2022-11-11] MEDS ORDERED: ePHEDrine sulfate 50 MG/ML VIAL ONE (15:00)
[2022-11-11] MEDS ORDERED: WATER FOR IRRIGATION,STERILE 1,000 ML IRRIG.SOLN IR ONE (15:00)
[2022-11-11] MEDS: MICAFUNGIN SODIUM 50 MG in NS 50 ML IV SCH (16:26)
[2022-11-11] MEDS: ENOXAPARIN SODIUM 40 MG/0.4 ML SYRINGE SUBCUT SCH (21:06)
[2022-11-11] MEDS: INSULIN GLARGINE 100 UNITS/ML, 10 ML VIAL SUBCUT SCH (21:16)
[2022-11-12] VITALS (35 sets, daily range): BP systolic 93–135; PULSE 59–98; RESP 19–34; TEMP 97.2–98.2; O2SAT 95–100
[2022-11-12] MEDS: INSULIN REGULAR, HUMAN 100 UNITS/ML, 3 ML VIAL (humuLIN R) SUBCUT PRN ×4 (00:29→17:48)
[2022-11-12] MEDS: PIPERACILLIN/TAZO 3.375/DEX-IS 50 ML IV SCH ×2 (00:29→05:53)
[2022-11-12] MEDS: D5W 1,000 ML IV SCH ×3 (00:30→22:06)
[2022-11-12 05:15] LABS: ERYTHROCYTE SEDIMENTATION RATE 40 MM/HR (0-15)
[2022-11-12 05:23] LABS: BASOPHILS # (AUTO) 0.1 K/uL (0.0-0.2); BASOPHILS % (AUTO) 0.5 % (0.0-2.0); EOSINOPHILS # (AUTO) 0.2 K/uL (0.0-0.4); HEMATOCRIT 28.5 % (36-54); HEMOGLOBIN 9.4 g/dL (14.0-18.0); LYMPHOCYTES # (AUTO) 1.6 K/uL (1.0-5.5); LYMPHOCYTES % (AUTO) 13.8 % (20.5-51.5); MEAN CORPUSCULAR HEMOGLOBIN 30 pg (27-31); MEAN CORPUSCULAR HGB CONC 33 % (32-36); MEAN CORPUSCULAR VOLUME 91 fL (79.0-98.0); MONOCYTES # (AUTO) 0.4 K/uL (0.0-1.0); MONOCYTES % (AUTO) 3.8 % (1.7-9.3); NEUTROPHILS % (AUTO) 79.9 % (40.0-70.0); PLATELET COUNT (AUTO) 230 K/uL (130-430); RED BLOOD CELL COUNT(AUTO) 3.13 MIL/uL (4.2-6.2); RED CELL DISTRIBUTION WIDTH 13.3 % (9.0-15.0); WHITE BLOOD COUNT (AUTO) 11.3 K/uL (4.8-10.8)
[2022-11-12 06:28] LABS: ALBUMIN 1.4 g/dL (3.4-4.8); CALCIUM 7.6 mg/dL (8.4-11.0); CREATININE 0.54 mg/dL (0.55-1.30); PHOSPHORUS 3.1 mg/dL (2.7-4.5); POTASSIUM 3.6 mmol/L (3.5-5.1); TOTAL BILIRUBIN 0.4 mg/dL (0.0-1.0); TOTAL PROTEIN, SERUM 5.3 g/dL (6.4-8.3)
[2022-11-12] MEDS: CARVEDILOL 6.25 MG TABLET (COREG) PO SCH ×2 (08:30→22:03)
[2022-11-12] MEDS: BICALUTAMIDE 50 MG TABLET PO SCH (08:30)
[2022-11-12] MEDS: PANTOPRAZOLE SODIUM 40 MG/VIAL (PROTONIX) IVP SCH ×2 (08:30→22:04)
[2022-11-12] MEDS: QUEtiapine FUMARATE 25 MG TABLET PO SCH ×2 (08:31→22:03)
[2022-11-12] MEDS: MUPIROCIN 2% TOPICAL OINTMENT 22 GM TP SCH ×2 (08:40→22:05)
[2022-11-12] MEDS: VANCOMYCIN HCL 1,000 MG in NS 250 ML IV SCH (08:59)
[2022-11-12] MEDS: CEFEPIME 2 GM in D5W 100 ML IV SCH (22:04)
[2022-11-12] MEDS: ENOXAPARIN SODIUM 40 MG/0.4 ML SYRINGE SUBCUT SCH (22:05)
[2022-11-12] MEDS: INSULIN GLARGINE 100 UNITS/ML, 10 ML VIAL SUBCUT SCH (22:08)
[2022-11-13] VITALS (35 sets, daily range): BP systolic 97–141; PULSE 71–115; RESP 22–34; TEMP 97.3–98.6; O2SAT 95–100
[2022-11-13] MEDS: INSULIN REGULAR, HUMAN 100 UNITS/ML, 3 ML VIAL (humuLIN R) SUBCUT PRN ×3 (05:56→18:29)
[2022-11-13 06:52] LABS: BASOPHILS # (AUTO) 0.1 K/uL (0.0-0.2); BASOPHILS % (AUTO) 0.6 % (0.0-2.0); EOSINOPHILS # (AUTO) 0.2 K/uL (0.0-0.4); EOSINOPHILS % (AUTO) 1.4 % (0.0-4.0); HEMATOCRIT 29.8 % (36-54); HEMOGLOBIN 9.8 g/dL (14.0-18.0); LYMPHOCYTES # (AUTO) 1.4 K/uL (1.0-5.5); LYMPHOCYTES % (AUTO) 9.8 % (20.5-51.5); MEAN CORPUSCULAR HEMOGLOBIN 30 pg (27-31); MEAN CORPUSCULAR HGB CONC 33 % (32-36); MEAN CORPUSCULAR VOLUME 92 fL (79.0-98.0); MONOCYTES # (AUTO) 0.4 K/uL (0.0-1.0); MONOCYTES % (AUTO) 2.9 % (1.7-9.3); NEUTROPHILS # (AUTO) 12.5 K/uL (1.8-7.7); NEUTROPHILS % (AUTO) 85.3 % (40.0-70.0); PLATELET COUNT (AUTO) 277 K/uL (130-430); RED BLOOD CELL COUNT(AUTO) 3.24 MIL/uL (4.2-6.2); RED CELL DISTRIBUTION WIDTH 13.8 % (9.0-15.0); WHITE BLOOD COUNT (AUTO) 14.7 K/uL (4.8-10.8)
[2022-11-13 06:56] LABS: CALCIUM 7.5 mg/dL (8.4-11.0); CREATININE 0.54 mg/dL (0.55-1.30)
[2022-11-13 07:03] LABS: POTASSIUM 2.8 mmol/L (3.5-5.1)
[2022-11-13] MEDS: CEFEPIME 2 GM in D5W 100 ML IV SCH ×2 (08:40→21:46)
[2022-11-13] MEDS: PANTOPRAZOLE SODIUM 40 MG/VIAL (PROTONIX) IVP SCH ×2 (08:41→21:46)
[2022-11-13] MEDS: BICALUTAMIDE 50 MG TABLET PO SCH (08:42)
[2022-11-13] MEDS: QUEtiapine FUMARATE 25 MG TABLET PO SCH ×2 (08:43→21:46)
[2022-11-13] MEDS: CARVEDILOL 6.25 MG TABLET (COREG) PO SCH ×2 (08:43→21:47)
[2022-11-13] MEDS: MUPIROCIN 2% TOPICAL OINTMENT 22 GM TP SCH ×2 (08:45→21:49)
[2022-11-13] MEDS ORDERED: KCL 40 mEq in 100 mL (PREMIX) 100 ML IV ONE (10:45)
[2022-11-13] MEDS ORDERED: POTASSIUM CHLORIDE 20 MEQ/PKT PACKET NG ONE (10:45)
[2022-11-13 17:13] LABS: ERYTHROCYTE SEDIMENTATION RATE 75 MM/HR (0-15)
[2022-11-13] MEDS: D5W 1,000 ML IV SCH (18:04)
[2022-11-13] MEDS: ENOXAPARIN SODIUM 40 MG/0.4 ML SYRINGE SUBCUT SCH (21:53)
[2022-11-13] MEDS: INSULIN GLARGINE 100 UNITS/ML, 10 ML VIAL SUBCUT SCH (21:55)
[2022-11-14] VITALS (31 sets, daily range): BP systolic 90–129; PULSE 90–106; RESP 22–33; TEMP 98.8–99.4; O2SAT 94–100
[2022-11-14] MEDS: D5W 1,000 ML IV SCH ×2 (05:59→19:04)
[2022-11-14] MEDS: INSULIN REGULAR, HUMAN 100 UNITS/ML, 3 ML VIAL (humuLIN R) SUBCUT PRN ×3 (06:10→17:52)
[2022-11-14] MEDS: CEFEPIME 2 GM in D5W 100 ML IV SCH ×2 (08:24→20:19)
[2022-11-14] MEDS: PANTOPRAZOLE SODIUM 40 MG/VIAL (PROTONIX) IVP SCH ×2 (08:24→20:18)
[2022-11-14] MEDS: QUEtiapine FUMARATE 25 MG TABLET PO SCH ×2 (08:25→20:18)
[2022-11-14] MEDS: BICALUTAMIDE 50 MG TABLET PO SCH (08:26)
[2022-11-14] MEDS: CARVEDILOL 6.25 MG TABLET (COREG) PO SCH ×2 (08:26→20:19)
[2022-11-14] MEDS: MUPIROCIN 2% TOPICAL OINTMENT 22 GM TP SCH ×2 (08:32→21:28)
[2022-11-14 10:54] LABS: BASOPHILS # (AUTO) 0.1 K/uL (0.0-0.2); BASOPHILS % (AUTO) 0.8 % (0.0-2.0); EOSINOPHILS # (AUTO) 0.2 K/uL (0.0-0.4); EOSINOPHILS % (AUTO) 2.1 % (0.0-4.0); HEMATOCRIT 27.7 % (36-54); HEMOGLOBIN 9.3 g/dL (14.0-18.0); LYMPHOCYTES % (AUTO) 8.8 % (20.5-51.5); MEAN CORPUSCULAR HEMOGLOBIN 31 pg (27-31); MEAN CORPUSCULAR HGB CONC 34 % (32-36); MEAN CORPUSCULAR VOLUME 92 fL (79.0-98.0); MONOCYTES # (AUTO) 0.3 K/uL (0.0-1.0); MONOCYTES % (AUTO) 3.1 % (1.7-9.3); NEUTROPHILS # (AUTO) 9.2 K/uL (1.8-7.7); NEUTROPHILS % (AUTO) 85.2 % (40.0-70.0); PLATELET COUNT (AUTO) 298 K/uL (130-430); RED BLOOD CELL COUNT(AUTO) 3.02 MIL/uL (4.2-6.2); RED CELL DISTRIBUTION WIDTH 14.3 % (9.0-15.0); WHITE BLOOD COUNT (AUTO) 10.8 K/uL (4.8-10.8)
[2022-11-14 11:24] LABS: ALBUMIN 1.2 g/dL (3.4-4.8); CALCIUM 7.3 mg/dL (8.4-11.0); CREATININE 0.58 mg/dL (0.55-1.30); PHOSPHORUS 2.5 mg/dL (2.7-4.5); POTASSIUM 3.4 mmol/L (3.5-5.1); TOTAL BILIRUBIN 0.2 mg/dL (0.0-1.0); TOTAL PROTEIN, SERUM 5.1 g/dL (6.4-8.3)
[2022-11-14] MEDS ORDERED: KCL 40 mEq in 100 mL (PREMIX) 100 ML IV ONE (19:45)
[2022-11-14] MEDS: INSULIN GLARGINE 100 UNITS/ML, 10 ML VIAL SUBCUT SCH (20:18)
[2022-11-14] MEDS: ENOXAPARIN SODIUM 40 MG/0.4 ML SYRINGE SUBCUT SCH (20:18)
[2022-11-15] VITALS (25 sets, daily range): BP systolic 90–122; PULSE 97–107; RESP 22–34; TEMP 97.6–99; O2SAT 89–99
[2022-11-15] MEDS: D5W 1,000 ML IV SCH ×2 (00:30→11:38)
[2022-11-15] MEDS: INSULIN REGULAR, HUMAN 100 UNITS/ML, 3 ML VIAL (humuLIN R) SUBCUT PRN ×2 (06:01→11:57)
[2022-11-15] MEDS: CARVEDILOL 6.25 MG TABLET (COREG) PO SCH (09:00)
[2022-11-15] MEDS: QUEtiapine FUMARATE 25 MG TABLET PO SCH (09:00)
[2022-11-15] MEDS: CEFEPIME 2 GM in D5W 100 ML IV SCH (09:00)
[2022-11-15] MEDS: PANTOPRAZOLE SODIUM 40 MG/VIAL (PROTONIX) IVP SCH (09:00)
[2022-11-15] MEDS: BICALUTAMIDE 50 MG TABLET PO SCH (09:00)
[2022-11-15] MEDS: MUPIROCIN 2% TOPICAL OINTMENT 22 GM TP SCH (09:00)
[2022-11-15 10:13] LABS: ALBUMIN 1.3 g/dL (3.4-4.8); BILIRUBIN,DIRECT 0.1 mg/dL (0.0-0.3); TOTAL BILIRUBIN 0.3 mg/dL (0.0-1.0); TOTAL PROTEIN, SERUM 5.4 g/dL (6.4-8.3)
[2022-11-15] MEDS ORDERED: CAS50 PO (18:56)
[2022-11-15] MEDS ORDERED: CEFE2FRO IV (18:56)
[2022-11-15] MEDS ORDERED: PROI40 IVP (18:56)
[2022-11-15] MEDS ORDERED: LOVI40 SUBCUT (18:56)
[2022-11-15] MEDS ORDERED: INSU100V9 SUBCUT (18:56)
[2022-11-17 07:07] LABS: QUANTIFERON TB GOLD Negative (Negative)
== END 2022-11-15 17:15 | DRG 4 ==
LOC: SED 10:56 → STU 13:13 → EDBD 13:13 → SIC 13:58
PROVIDERS: ADMIT Preventive Medicine Preventive Medicine/Occupational Environmental Medicine; ATTEND Preventive Medicine Preventive Medicine/Occupational Environmental Medicine
PROC: 5A1955Z Respiratory Ventilation, Greater than 96 Consecutive Hours (ICD-10-PCS; 2022-10-25)
PROC: 02HV33Z Insertion of Infusion Device into Superior Vena Cava, Percutaneous Approach (ICD-10-PCS; 2022-10-25)
PROC: B548ZZA Ultrasonography of Superior Vena Cava, Guidance (ICD-10-PCS; 2022-10-25)
PROC: 0BH17EZ Insertion of Endotracheal Airway into Trachea, Via Natural or Artificial Opening (ICD-10-PCS; 2022-10-25)
PROC: XW033E5 Introduction of Remdesivir Anti-infective into Peripheral Vein, Percutaneous Approach, New Technology Group 5 (ICD-10-PCS; 2022-10-27)
PROC: 0DH63UZ Insertion of Feeding Device into Stomach, Percutaneous Approach (ICD-10-PCS; 2022-11-11)
PROC: 0B110F4 Bypass Trachea to Cutaneous with Tracheostomy Device, Open Approach (ICD-10-PCS; principal; 2022-11-11 15:02)
DX: A41.9 Sepsis, unspecified organism (principal); R65.21 Severe sepsis with septic shock; E43 Unspecified severe protein-calorie malnutrition; J96.21 Acute and chronic respiratory failure with hypoxia; I46.9 Cardiac arrest, cause unspecified; J12.82 Pneumonia due to coronavirus disease 2019; U07.1 COVID-19; E87.1 Hypo-osmolality and hyponatremia; E87.0 Hyperosmolality and hypernatremia; M48.56XA Collapsed vertebra, not elsewhere classified, lumbar region, initial encounter for fracture; K92.2 Gastrointestinal hemorrhage, unspecified; Z99.11 Dependence on respirator [ventilator] status; Y90.9 Presence of alcohol in blood, level not specified; E11.621 Type 2 diabetes mellitus with foot ulcer; C61 Malignant neoplasm of prostate; E04.2 Nontoxic multinodular goiter; E11.65 Type 2 diabetes mellitus with hyperglycemia; S91.302A Unspecified open wound, left foot, initial encounter; E88.09 Other disorders of plasma-protein metabolism, not elsewhere classified; X58.XXXA Exposure to other specified factors, initial encounter; E83.39 Other disorders of phosphorus metabolism; E83.41 Hypermagnesemia; E83.51 Hypocalcemia; E83.52 Hypercalcemia; D64.9 Anemia, unspecified; E11.51 Type 2 diabetes mellitus with diabetic peripheral angiopathy without gangrene; E87.6 Hypokalemia; J43.9 Emphysema, unspecified; I10 Essential (primary) hypertension; K80.20 Calculus of gallbladder without cholecystitis without obstruction; E66.9 Obesity, unspecified; D72.829 Elevated white blood cell count, unspecified; N40.0 Benign prostatic hyperplasia without lower urinary tract symptoms; F10.20 Alcohol dependence, uncomplicated; R13.10 Dysphagia, unspecified; L97.519 Non-pressure chronic ulcer of other part of right foot with unspecified severity; N62 Hypertrophy of breast; Z88.1 Allergy status to other antibiotic agents; Z88.8 Allergy status to other drugs, medicaments and biological substances; Z79.899 Other long term (current) drug therapy; Y93.89 Activity, other specified; Y92.89 Other specified places as the place of occurrence of the external cause; Y99.8 Other external cause status; Z68.21 Body mass index [BMI] 21.0-21.9, adult; Z79.4 Long term (current) use of insulin
CPT/HCPCS: 0241U; 36415; 36600; 43246; 70450-TC; 71045; 71250-TC; 76376; 76536-TC; 80048; 80053; 80076; 80202; 81000; 81003; 82272; 82607; 82728; 82746; 82803; 82962; 83540; 83550; 83605; 83735; 83880; 84100; 84132; 84153; 84484; 85007; 85025; 85027; 85044; 85610-TC; 85651-TC; 85730-TC; 86480; 86886; 86900; 86901; 87040; 87070-TC; 87081; 87086; 87205-TC; 93005; 93306; 93923; 94002; 94003; 94640; 94760; 99291; C9113; G0482; J0360; J0610; J0692; J0696; J1650; J1815; J1940; J2060; J2543; J2704; J3370; J3475; J3480; J3490; J7030; J7050; J7060